=== PATIENT | female | born 2000 | race African-American/Black ===

== ENCOUNTER 2019-06-01 22:34 | Emergency (ER) | payer OTHER ==
[~2019-06-01] VITALS: Ht 182.9 cm; Wt 74.8 kg
[2019-06-01 23:28] LABS: URINE BILIRUBIN NEGATIVE (Negative); URINE BLOOD NEGATIVE (Negative); URINE CLARITY SL CLOUDY; URINE COLOR YELLOW; URINE GLUCOSE-RANDOM* NEGATIVE (Negative); URINE KETONES NEGATIVE (Negative); URINE NITRITE-REFLEX NEGATIVE (Negative); URINE PROTEIN (DIPSTICK) NEGATIVE (Negative)
[2019-06-01 23:31] LABS: URINE LEUKOCYTES-REFLEX 3+ (Negative)
[2019-06-01 23:40] LABS: CASTS None Seen /LPF (None Seen); CRYSTALS None Seen /LPF (None Seen); MUCUS 0-3 Light strn/LPF (None Seen); SQUAMOUS 4-10 Moderate /LPF (0-3); URINE RBC 3-10 Few /HPF (0-2); WBC CLUMPS Few (None Seen)
[2019-06-01] MEDS ORDERED: KEFLEX500 M1 PO (23:52)
[2019-06-02 01:18] VITALS: BP 116/55
== END 2019-06-02 01:21 | disposition home or self-care (01) ==
LOC: ER 22:34
PROVIDERS: Nurse Practitioner
DX: N39.0 Urinary tract infection, site not specified (principal); A59.01 Trichomonal vulvovaginitis

== ENCOUNTER 2019-07-10 02:33 | Emergency (ER) | payer OTHER ==
[~2019-07-10] VITALS: Ht 182.9 cm; Wt 82.1 kg
[~2019-07-10 02:33] MED LIST: KEFLEX500 M1 PO
[2019-07-10 02:40] VITALS: BP 130/54
[2019-07-10 02:58] LABS: URINE BILIRUBIN NEGATIVE (Negative); URINE BLOOD NEGATIVE (Negative); URINE CLARITY CLEAR; URINE COLOR YELLOW; URINE GLUCOSE-RANDOM* NEGATIVE (Negative); URINE KETONES NEGATIVE (Negative); URINE LEUKOCYTES-REFLEX TRACE (Negative); URINE NITRITE-REFLEX NEGATIVE (Negative); URINE PROTEIN (DIPSTICK) NEGATIVE (Negative)
== END 2019-07-10 05:15 | disposition home or self-care (01) ==
LOC: ER 02:33
PROVIDERS: Emergency Medicine
DX: R10.30 Lower abdominal pain, unspecified (principal)

== ENCOUNTER 2021-05-02 00:58 | Emergency (ER) | payer OTHER ==
[~2021-05-02] VITALS: Ht 182.9 cm; Wt 79.4 kg
[2021-05-02 02:26] LABS: URINE BILIRUBIN NEGATIVE (Negative); URINE BLOOD NEGATIVE (Negative); URINE CLARITY CLEAR; URINE COLOR YELLOW; URINE GLUCOSE-RANDOM* NEGATIVE (Negative); URINE KETONES NEGATIVE (Negative); URINE LEUKOCYTES-REFLEX NEGATIVE (Negative); URINE NITRITE-REFLEX NEGATIVE (Negative); URINE PROTEIN (DIPSTICK) NEGATIVE (Negative)
[2021-05-02 02:42] LABS: ABSOLUTE NEUTROPHILS 4.3 thou/uL (1.4-8.2); BASOPHILS 0.6 % (0.0-2.0); EOSINOPHILS 1.5 % (0.0-3.0); HEMATOCRIT 38.9 % (37.0-47.0); HEMOGLOBIN 12.9 gm/dL (12.0-15.0); LYMPHOCYTES 27.7 % (24.0-44.0); MCH 28.6 pg (26.0-34.0); MCHC 33.2 g/dL (28.0-37.0); MCV 86.1 fL (80.0-100.0); MONOCYTES 11.9 % (1.0-8.0); PLATELET COUNT 214 thou/uL (150-400); POLYS 58.3 % (36.0-66.0); RBC 4.52 mil/uL (4.20-5.00); RDW 12.8 % (10.5-14.5); WBC 7.3 thou/uL (4.0-11.0)
[2021-05-02 03:34] LABS: CALCIUM 8.7 mg/dL (8.5-10.1); CREATININE 1.1 mg/dL (0.6-1.0); POTASSIUM 3.9 mmol/L (3.5-5.1)
[2021-05-02 03:40] LABS: ALBUMIN 3.5 g/dL (3.4-5.0); TOTAL BILIRUBIN 0.3 mg/dL (0.2-1.0); TOTAL PROTEIN 7.2 g/dL (6.4-8.2)
[2021-05-02 06:21] VITALS: BP 128/72
== END 2021-05-02 06:22 | disposition home or self-care (01) ==
LOC: ER 00:58
PROVIDERS: Emergency Medicine
DX: N83.201 Unspecified ovarian cyst, right side (principal); N89.8 Other specified noninflammatory disorders of vagina; R10.2 Pelvic and perineal pain